=== PATIENT | male | born 1960 | race Caucasian/White ===

== ENCOUNTER 2021-11-05 17:27 | Inpatient (IN) | payer OTHER ==
[2021-11-05] MEDS ORDERED: MENTHOL/PHENOL 1 EACH UD MM PRN (20:27)
[2021-11-05] MEDS ORDERED: ONDANSETRON *ODT* 4 MG TABLET SL PRN (20:27)
[2021-11-05] MEDS ORDERED: MAGNESIUM HYDROX 2400MG/30ML ORAL SUSPENSION 30 ML CUP PO PRN (20:27)
[2021-11-05] MEDS ORDERED: BISMUTH SUBSALICYLATE 524 MG/30 ML PO PRN (20:27)
[2021-11-05] MEDS ORDERED: LOPERAMIDE HCL 2 MG CAPSULE PO PRN (20:27)
[2021-11-05] MEDS ORDERED: MELATONIN 5 MG TABLETS PO PRN (20:27)
[2021-11-05] MEDS ORDERED: ACETAMINOPHEN 325 MG TABLET (FP) PO PRN ×2 (20:27)
[2021-11-05] MEDS ORDERED: MAGNESIUM CITRATE 300 ML BOTTLE PO PRN (20:27)
[2021-11-05] MEDS ORDERED: MAG HYDROX/AL HYDROX/SIMETH 30 ML UNIT-DOSE CUP PO PRN (20:27)
[2021-11-05] MEDS ORDERED: IBUPROFEN 400 MG TABLET (FP) PO PRN (20:27)
[2021-11-05] MEDS ORDERED: chlordiazePOXIDE HCL 25 MG CAPSULE PO PRN (20:31)
[2021-11-05] MEDS ORDERED: chlordiazePOXIDE HCL 25 MG CAPSULE ONE (22:49)
[2021-11-05] MEDS ORDERED: METHOCARBAMOL 500 MG TABLET ONE (22:50)
[2021-11-05] MEDS: THIAMINE HCL 100 MG TABLET (FP) PO SCH (22:54)
[2021-11-05] MEDS: chlordiazePOXIDE HCL 25 MG CAPSULE PO SCH (22:54)
[2021-11-05] MEDS: METHOCARBAMOL 500 MG TABLET PO PRN (22:55)
[2021-11-05 23:30] VITALS: BMI 30.2
[2021-11-05] MEDS: NICOTINE POLACRILEX 2 MG GUM BUC PRN (23:57)
[2021-11-06] MEDS: chlordiazePOXIDE HCL 25 MG CAPSULE PO SCH ×4 (06:19→22:40)
[2021-11-06] MEDS: NICOTINE POLACRILEX 2 MG GUM BUC PRN ×3 (06:20→17:11)
[2021-11-06] MEDS: METHOCARBAMOL 500 MG TABLET PO PRN ×2 (10:26→22:40)
[2021-11-06] MEDS: hydrOXYzine PAMOATE 25 MG CAPSULE (FP) PO PRN ×2 (10:26→22:40)
[2021-11-06] MEDS: PRENATAL VITAMINS W/ FOLIC ACID TABLET (FP) PO SCH (10:27)
[2021-11-06] MEDS: NICOTINE 7 MG/24 HOURS TOPICAL PATCH TD SCH (10:28)
[2021-11-06 11:06] LABS: HEMATOCRIT 39.8 % (35.4-49); HEMOGLOBIN 13.4 GM/dL (11.7-16.9); MCH 30.1 pg (25.7-33.7); MCHC 33.6 g/dl (32.0-35.9); MEAN CELL VOLUME 89.4 fl (80-96); MEAN PLT VOLUME 7.1 fl (7.5-11.1); PLATELET COUNT 291 10^3/uL (134-434); RBC 4.45 M/mm3 (4.00-5.60); RDW 14.3 % (11.9-15.9); WHITE BLOOD COUNT 8.3 K/mm3 (4.0-10.0)
[2021-11-06 11:14] LABS: ALBUMIN 3.8 g/dl (3.4-5.0); BLOOD UREA NITROGEN 12.7 mg/dL (7-18); CALCIUM 8.7 mg/dL (8.5-10.1)
[2021-11-06 11:17] LABS: CREATININE 0.8 mg/dL (0.55-1.3)
[2021-11-06 11:18] LABS: BILIRUBIN,TOTAL 0.7 mg/dL (0.2-1); TOT PROT 6.5 g/dl (6.4-8.2)
[2021-11-06] MEDS: THIAMINE HCL 100 MG TABLET (FP) PO SCH (22:40)
[2021-11-07] MEDS: chlordiazePOXIDE HCL 25 MG CAPSULE PO SCH ×4 (05:42→22:31)
[2021-11-07] MEDS: NICOTINE POLACRILEX 2 MG GUM BUC PRN ×6 (05:44→22:32)
[2021-11-07] MEDS: PRENATAL VITAMINS W/ FOLIC ACID TABLET (FP) PO SCH (10:11)
[2021-11-07] MEDS: hydrOXYzine PAMOATE 25 MG CAPSULE (FP) PO PRN ×3 (10:12→18:23)
[2021-11-07] MEDS: NICOTINE 7 MG/24 HOURS TOPICAL PATCH TD SCH (10:13)
[2021-11-07] MEDS: amLODIPine BESYLATE 5 MG TABLET (FP) PO SCH (18:23)
[2021-11-07] MEDS: THIAMINE HCL 100 MG TABLET (FP) PO SCH (22:31)
[2021-11-08] MEDS ORDERED: chlordiazePOXIDE HCL 10 MG CAPSULE PO PRN
[2021-11-08] MEDS: chlordiazePOXIDE HCL 10 MG CAPSULE PO SCH ×4 (06:03→23:22)
[2021-11-08] MEDS: NICOTINE POLACRILEX 2 MG GUM BUC PRN ×4 (06:05→14:48)
[2021-11-08] MEDS: PRENATAL VITAMINS W/ FOLIC ACID TABLET (FP) PO SCH (10:12)
[2021-11-08] MEDS: METHOCARBAMOL 500 MG TABLET PO PRN (10:13)
[2021-11-08] MEDS: hydrOXYzine PAMOATE 25 MG CAPSULE (FP) PO PRN ×2 (10:13→18:43)
[2021-11-08] MEDS: amLODIPine BESYLATE 5 MG TABLET (FP) PO SCH (10:13)
[2021-11-08] MEDS: NICOTINE 7 MG/24 HOURS TOPICAL PATCH TD SCH (10:14)
[2021-11-08] MEDS: THIAMINE HCL 100 MG TABLET (FP) PO SCH (23:23)
[2021-11-09] MEDS ORDERED: chlordiazePOXIDE HCL 10 MG CAPSULE PO SCH (05:00)
[2021-11-09] MEDS: NICOTINE POLACRILEX 2 MG GUM BUC PRN (06:54)
[2021-11-09] MEDS: hydrOXYzine PAMOATE 25 MG CAPSULE (FP) PO PRN (09:34)
[2021-11-09 09:37] VITALS: BP 122/77; PULSE 65; TEMP 96.9
[2021-11-09] MEDS: amLODIPine BESYLATE 5 MG TABLET (FP) PO SCH (11:30)
[2021-11-09] MEDS: PRENATAL VITAMINS W/ FOLIC ACID TABLET (FP) PO SCH (11:30)
[2021-11-09] MEDS: NICOTINE 7 MG/24 HOURS TOPICAL PATCH TD SCH (11:30)
[2021-11-10] MEDS ORDERED: chlordiazePOXIDE HCL 10 MG CAPSULE PO ONE (05:00)
== END 2021-11-09 11:37 | disposition left against medical advice (07) | DRG 770 ==
LOC: YASAS 17:27 → Y6N 22:32
PROVIDERS: ADMIT Allergy & Immunology; ATTEND Allergy & Immunology
PROC: HZ2ZZZZ Detoxification Services for Substance Abuse Treatment (ICD-10-PCS; principal; 2021-11-05)
DX: F10.230 Alcohol dependence with withdrawal, uncomplicated (principal); F10.220 Alcohol dependence with intoxication, uncomplicated; F17.210 Nicotine dependence, cigarettes, uncomplicated; J44.9 Chronic obstructive pulmonary disease, unspecified; M54.50 Low back pain, unspecified; G89.29 Other chronic pain; R03.0 Elevated blood-pressure reading, without diagnosis of hypertension; R74.8 Abnormal levels of other serum enzymes
CPT/HCPCS: 36415; 80053; 85027; 86780; 87811